=== PATIENT | female | born 1960 | race Caucasian/White ===

== ENCOUNTER 2018-05-30 09:28 | Emergency (ER) | payer SELFPAY ==
[~2018-05-30] VITALS: Ht 175.3 cm; Wt 95.0 kg
[2018-05-30 09:31] VITALS: TEMP 98.8
[2018-05-30 10:02] LABS: HEMATOCRIT 48.1 % (37.0-47.0); MEAN CELL VOLUME 92 fl (80.0-100.0); MEAN CORPUSCULAR HEMOGLOBIN 32 pg (27.0-31.0); MEAN CORPUSCULAR HGB CONC 35 g/dl (33.0-37.0); MEAN PLATELET VOLUME 11.3 fl (7.4-10.4); PLATELET COUNT 222 K/mm3 (130-400); RED BLOOD COUNT 5.25 M/mm3 (4.10-5.30); REDCELL DISTRIBUTION WIDTH-CV 12.1 % (11.5-14.5)
[2018-05-30 10:13] LABS: ALBUMIN 4.3 gm/dL (3.5-5.0); BILIRUBIN,TOTAL 2.1 mg/dL (0.0-1.0); CALCIUM 9.5 mg/dL (8.4-10.2); CREATININE, serum 0.83 mg/dL (0.52-1.25); POTASSIUM 3.5 mmol/L (3.4-5.0); TOTAL PROTEIN 8.3 gm/dL (6.4-8.2)
[2018-05-30 10:29] LABS: BAND 71 % (0-10); LYMPHOCYTE 7 % (20.0-51.0); NEUTROPHILS 5 % (42.0-75.2); PLATELET ESTIMATE NORMAL (NORMAL)
[2018-05-30 10:36] LABS: C-REACTIVE PROTEIN 22.4 mg/dL (0.0-0.9)
[2018-05-30 11:51] LABS: COLLECTION METHOD CLEAN CATCH
[2018-05-30 12:30] LABS: MUCOUS Present /lpf; PH 5 (5-8); SQUAMOUS EPITHELIAL 0-2 /hpf; URINE APPEARANCE Hazy; URINE BACTERIA None Seen /hpf; URINE BILIRUBIN Positive (NEGATIVE); URINE BLOOD Negative (NEGATIVE); URINE COLOR Amber; URINE GLUCOSE Negative (NEGATIVE); URINE KETONE 2+ (NEGATIVE); URINE LEUKOCYTE ESTERASE Negative (NEGATIVE); URINE NITRATE Negative (NEGATIVE); URINE PROTEIN(semi-quant) 2+ (NEGATIVE); URINE RBC 0-2 /hpf; URINE UROBILINOGEN >=4.0 mg/dL (NEGATIVE)
[2018-05-30] MEDS ORDERED: FLAGYL500 MG PO (13:58)
[2018-05-30] MEDS ORDERED: NORCO 325 MG-51 TAB PO (13:58)
[2018-05-30] MEDS ORDERED: ZOFRAN ODT4 MG PO (13:58)
[2018-05-30] MEDS ORDERED: CIPRO 500MG TA500 MG PO (13:58)
[2018-05-30 14:18] VITALS: BP 128/66; PULSE 86
[2018-05-31 08:22] LABS: PATHOLOGY DIFF REVIEW OK
== END 2018-05-30 14:19 | disposition home or self-care (01) ==
LOC: COL.ER 09:28
PROVIDERS: Nurse Practitioner
DX: K52.9 Noninfective gastroenteritis and colitis, unspecified (principal); Z87.891 Personal history of nicotine dependence
CPT/HCPCS: J1170; J1885; J2405; J7030; Q9967